=== PATIENT | female | born 1985 | race Caucasian/White ===

== ENCOUNTER 2017-03-10 11:49 | Emergency (ER) | payer OTHER | END 2017-03-10 13:35 | disposition home or self-care (01) | LOC: ER 11:49 | DX: J20.9 Acute bronchitis, unspecified (principal); Z87.891 Personal history of nicotine dependence | CPT/HCPCS: 99283 ==

== ENCOUNTER 2017-04-02 20:26 | Emergency (ER) | payer OTHER ==
[2017-04-02 21:20] LABS: URINE HCG POC HCG NEGATIVE (Negative)
[2017-04-02] MEDS: IV NORMAL SALINE 1000ML BAG 1,000 ML IV ×2 (21:30)
[2017-04-02 21:31] LABS: BILIRUBIN,URINE NEGATIVE (NEG); COLOR,URINE YELLOW; GLUCOSE,URINE NEGATIVE (NEG); NITRITE,URINE NEGATIVE (NEG); PH,URINE 6.5; PROTEIN,URINE NEGATIVE (NEG-TRACE)
[2017-04-02 21:35] LABS: CLARITY,URINE CLEAR
[2017-04-02 21:38] LABS: ADD MAN DIFF? NO
[2017-04-02 21:39] LABS: BACTERIA,URINE MODERATE /HPF (0-FEW); RBC,URINE 0 /HPF (0-2); SQUAMOUS EPITHELIAL CELL,UR MANY /LPF; WBC,URINE OCC /HPF (0-4)
[2017-04-02 21:41] LABS: BASO # 0.1 x10^3/uL (0.0-0.2); BASO % 1 % (0-3); EOS # 0.2 x10^3/uL (0.0-0.7); EOS % 4 % (0-3); HEMATOCRIT 40.4 % (36.0-47.0); HEMOGLOBIN 14.2 g/dL (12.0-15.5); LYMPH # 2.5 x10^3/uL (1.0-4.8); LYMPH % 50 % (24-48); MEAN CORPUSCULAR HEMOGLOBIN 32 pg (25-35); MEAN CORPUSCULAR HGB CONC 35 g/dL (31-37); MEAN CORPUSCULAR VOLUME 91 fL (79-100); MONO # 0.6 x10^3/uL (0.0-1.1); MONO % 12 % (0-9); NEUT # 1.7 x10^3uL (1.8-7.7); NEUT % 33 % (31-73); PLATELET COUNT 168 x10^3/uL (140-400); RED BLOOD COUNT 4.44 x10^6/uL (3.50-5.40); RED CELL DISTRIBUTION WIDTH 12.4 % (11.5-14.5); WHITE BLOOD COUNT 5.1 x10^3/uL (4.0-11.0)
[2017-04-02 21:48] LABS: ANION GAP 6 (6-14); BLOOD UREA NITROGEN 7 mg/dL (7-20); BUN/CREATININE RATIO 10 (6-20); CALCIUM 9.1 mg/dL (8.5-10.1); CARBON DIOXIDE 30 mmol/L (21-32); CHLORIDE 101 mmol/L (98-107); CREATININE 0.7 mg/dL (0.6-1.0); GFR 98.3; GLUCOSE 98 mg/dL (70-99); POTASSIUM 3.1 mmol/L (3.5-5.1); SODIUM 137 mmol/L (136-145)
[2017-04-02 21:54] LABS: ALBUMIN 3.5 g/dL (3.4-5.0); ALK PHOS 65 U/L (46-116); ALT (SGPT) 21 U/L (14-59); AST (SGOT) 16 U/L (15-37); TOTAL BILIRUBIN 0.6 mg/dL (0.2-1.0); TOTAL PROTEIN 7.1 g/dL (6.4-8.2)
== END 2017-04-02 22:41 | disposition home or self-care (01) ==
LOC: ER 20:26
DX: R10.84 Generalized abdominal pain (principal); R42 Dizziness and giddiness; E86.0 Dehydration; E87.6 Hypokalemia; R05 Cough; Z98.51 Tubal ligation status
CPT/HCPCS: 36415; 80053; 81001; 81025; 85025; 87086; 87186; 99284